=== PATIENT | male | born 1960 | race Caucasian/White ===

== ENCOUNTER → 2016-11-15 | Outpatient (CLI) | payer BC, OTHER ==
[2016-11-15 07:25] LABS: BASOPHILS # (AUTO) 0.08 10*3/UL; BASOPHILS % (AUTO) 1.4 % (0-1); EOSINOPHILS % (AUTO) 4.2 % (0-8); HEMATOCRIT 49.1 % (42.0-52.0); HEMOGLOBIN 17.3 g/dL (14.0-18.0); IMM GRAN % (AUTO) 0.2 % (0-5); IMM GRAN# (AUTO) 0.01 10*3/UL; LYMPHOCYTES # (AUTO) 1.55 10*3/uL; LYMPHOCYTES % (AUTO) 28.1 % (10-50); MEAN CORPUSCULAR HEMOGLOBIN 29.4 PG (27-31); MEAN CORPUSCULAR HGB CONC 35.2 g/dL (33-37); MEAN PLATELET VOLUME 9.3 FL (7.4-12.2); MONOCYTES # (AUTO) 0.46 10*3/UL (0.3-0.8); MONOCYTES % (AUTO) 8.3 % (5-15); NEUTROPHILS # (AUTO) 3.19 10*3/UL; NEUTROPHILS % (AUTO) 57.8 % (50-80); PLATELET MORPHOLOGY COMMENT NORMAL MORPHOLOGY (NORM); RDW COEFFICIENT OF VARIATION 12.9 % (11.5-14.5); RED BLOOD COUNT 5.88 10^6/uL (4.70-6.10); WHITE BLOOD COUNT 5.52 10^3/uL (4.8-10.8)
[2016-11-15 08:37] LABS: BILIRUBIN,TOTAL 0.9 mg/dL (0.3-1.2); BUN/CREATININE RATIO 17.14 (6-20); CALCIUM 9.7 mg/dL (8.7-10.7); CREATININE 0.7 mg/dL (0.70-1.50); EST GLOMERULAR FILTRATION > 60 (>60 ml/min/1.73m(2)); POTASSIUM 4.3 meq/L (3.8-5.2)
[2016-11-15 08:38] LABS: TOTAL PROTEIN 7.8 g/dL (6.1-8.0)
[2016-11-17 06:40] LABS: HEMOGLOBIN A1C 7.85 % (4.2-6.0); MEAN BLOOD GLUCOSE (CALC) 175.405 mg/dL
== END ==
LOC: LAB 07:09
DX: E83.119 Hemochromatosis, unspecified (principal); E11.9 Type 2 diabetes mellitus without complications; Z79.4 Long term (current) use of insulin; E55.9 Vitamin D deficiency, unspecified; E78.5 Hyperlipidemia, unspecified; I10 Essential (primary) hypertension; R97.20 Elevated prostate specific antigen [PSA]; Z12.5 Encounter for screening for malignant neoplasm of prostate; F17.220 Nicotine dependence, chewing tobacco, uncomplicated
CPT/HCPCS: 36415; 80053; 80061; 82306; 82728; 83036; 84443; 85025; G0103

== ENCOUNTER 2017-02-17 04:17 | Emergency (ER) | payer BC, OTHER ==
[2017-02-17] MEDS ORDERED: ONDANSETRON 4 MG/2 ML VIAL ONE (04:24)
[2017-02-17] MEDS ORDERED: Sodium Chloride 0.9% 1,000 ML ONE (04:26)
[2017-02-17] MEDS ORDERED: NORMAL SALINE 10 ML SYRINGE FLUSH IVP PRN (04:38)
[2017-02-17] MEDS ORDERED: KETOROLAC 15 MG/1 ML VIAL IVP ONE (04:40)
[2017-02-17] MEDS ORDERED: ONDANSETRON 4 MG/2 ML VIAL IVP ONE (04:40)
[2017-02-17] MEDS ORDERED: Sodium Chloride 0.9% 1,000 ML PRIMARY IV ONE (04:40)
[2017-02-17] MEDS ORDERED: MORPHINE SULFATE 4 MG/1 ML IVP ONE (04:40)
--- NOTE | 2017-02-17 04:42 | PDOC ---
Gen Adult / Medical Screen HPI - General Chief Complaint: General Medical Stated Complaint: Stomach Pain Date Seen by Provider: 02/17/17 Time Seen by Provider: 04:41 - History of Present Illness Initial Comments: Jermaine is a 57-year-old male who presents to the emergency department for right flank pain. Patient reports symptoms started 2 hours prior. Right side. Radiates tenderness in the abdomen. No exacerbating or relieving factors severe in nature sharp and stabbing. Patient indicates it feels similar to prior renal stones. Patient has mild urinary frequency. No dysuria urgency. Patient denies any fevers or chills. He has had nausea and vomiting. - Patient Home Medications Home Medications: Home Medications Lisinopril 0.5 tab PO BID #45 03/23/11 Lancets [Bd Ultra-Fine II] 1 each MC QID #120 each 06/11/14 Amlodipine Besylate 1 tab PO DAILY #30 tab 03/02/15 Insulin Glargine Inj [Lantus Inj] 45 unit SQ BID #2 vial 08/31/15 Atorvastatin Calcium [Lipitor] 1 tab PO QD #90 tab 11/25/15 Aspirin 1 tab PO QD #30 tab 12/13/15 Cetirizine HCl [Zyrtec] 1 cap PO QD #30 cap 12/13/15 Cholecalciferol (Vitamin D3) [Vitamin D3] 1 cap PO QD #30 cap 12/13/15 Multivit-Min/FA/Lycopene/Lut [Centrum Silver Tablet] 1 tab PO QD #30 tab Saccharomyces Boulardii [Probiotic] 1 tab PO QD #30 cap 12/13/15 Tamsulosin HCl [Flomax] 1 cap PO QD #30 cap 12/13/15 Fluticasone Propionate [Flonase Allergy Relief] 2 spr NS BID #16 spray 02/22/16 Naproxen [Naprosyn] 1 tab PO BID #60 tab 09/28/16 Sitagliptin Phosphate [Januvia] 1 tab PO QHS #90 tab 10/22/16 Blood Sugar Diagnostic [Onetouch Verio] 1 strip MC QID PRN #350 strip 01/24/17 HYDROcodone/APAP 5/325 Tab [Hope 5/325 Tab] 2 tab PO Q6H PRN #20 tab 02/17/17 Ondansetron Odt [Zofran ODT] 4 mg PO TID PRN #12 tab.rapdis 02/17/17 - Patient Allergies Allergies/Adverse Reactions: Allergies Allergy/AdvReac Type Severity Reaction Status Date / Time tetracycline Allergy Intermediate HIVES Verified 02/17/17 05:45 Past Medical History - heen HEENT History:  Additional HEENT History: GLASSES FOR READING Cardiovascular History: Hypertension, Hyperlipidemia Respiratory History: Pneumonia, Sleep Apnea Gastrointestinal History: Diverticulitis, Pancreatitis Additional Gastrointestinal History: PANCREATITIS DUE TO UNKNOWN CAUSE IN 2014 Genitourinary History: Kidney Stones Endocrine History: Type 2 Diabetes (oral), Type 2 Diabetes (insulin) Musculoskeletal History: Back Pain Prosthesis or Implant: Yes (L SHOULDER PINS/SCREWS) Additional Musculoskeletal History: NECK PAIN Neurological History: Denies History, Motion Sickness Blood Disorders: Other (please comment) Additional Blood Disorders History: HEMOCHROMATOSIS Psychiatric History: Denies History History of Sexually Transmitted Diseases: No Cancer History: Denies History History of MDRO: No History of Other Communicable Diseases: No Alcohol Use: None Substance Use Type: None Previous Surgical History: Yes Type / Date of Surgery: NECK FUSION,L WRIST, L KNEE SCOPE, R ANKLE, L ELBOW, L SHOULDER, B EYES ( GROWTHS REMOVED)/ BILATERAL INGUINAL HERNIA REPAIR/PILONIDAL CYST EXCISED/RIGHT FOOT/ Anesthesia Reactions: No Malignant Hyperthermia: No Significant Family History: No pertinent family hx Past Medical History Reviewed: Reviewed - No Changes ROS - Limitations ROS Limitations: No Limitations Constitution: DENIES: Chills, Fever Cardiovascular: REPORTS: Denies Cardiac Symptoms Respiratory: REPORTS: Denies Resp Symptoms Neurological: REPORTS: Denies Neuro Symptoms Gastrointestinal: REPORTS: Nausea, Vomitting Endocrine: REPORTS: Denies Symptoms Musculoskeletal: REPORTS: Other (Right flank pain) Genitourinary: REPORTS: Other (Frequency) Eyes: REPORTS: Denies Symptoms ENT: REPORTS: Denies Symptoms Skin: REPORTS: Denies Skin Symptoms Lympathic: REPORTS: Denies Lympathic Symptoms Gen Adult/Medical Screen Exam - General Appearance General Appearance: POSITIVE: Mild Distress - HEENT HEENT: POSITIVE: Head Inspection Nml - Pupils Pupil Size: 4 mm: Bilateral - Neck Neck: POSITIVE: Normal Inspection - Respiratory Respiratory: POSITIVE: No Respiratory Distress, Breath Sounds Normal - Cardiovascular Cardiovascular: POSITIVE: Regular Rate & Rhythm, No Murmur, No Gallop - Abdomen Abdomen: Soft: (All Quadrants), Normal Bowel Sounds: (All Quadrants), No Splenomegaly: (All Quadrants), No Hepatomegaly: (All Quadrants) - Back Back: NEGATIVE: CVA Tenderness - Neurological / Psychological Mental Status: POSITIVE: Mood Normal Orientation: POSITIVE: Oriented x 3 - Skin Skin: POSITIVE: Warm, Dry - Extremities Extremity: Non-Tender: (All Extremities), Normal ROM: (All Extremities), Normal Inspection: (All Extremities) Gen Adlt/Medical Scrn Progress - Results Reviewed by me Xrays/CTs/US Reviewed by me: Yes Radiology Findings: CT scan shows a right-sided stone at the UVJ. Lab Results Reviewed: Yes Lab Results:: Laboratory Results 02/17/17 Range/Units 04:38 WBC 6.88 (4.8-10.8) 10^3/uL RBC 5.94 (4.70-6.10) 10^6/uL Hgb 17.8 (14.0-18.0) g/dL Hct 49.4 (42.0-52.0) % MCV 83.2 (80-90) FL MCH 30.0 (27-31) PG MCHC 36.0 (33-37) g/dL RDW Std Deviation 41.0 (39-50) fL RDW Coeff of Aaron 13.5 (11.5-14.5) % Plt Count 206 (140-350) 10*3/uL MPV 10.1 (7.4-12.2) FL Immature Gran % (Auto) 0.6 (0-5) % Neut % (Auto) 53.6 (50-80) % Lymph % (Auto) 33.7 (10-50) % [place] % (Auto) 7.0 (5-15) % Eos % (Auto) 4.4 (0-8) % Baso % (Auto) 0.7 (0-1) % Immature Gran # (Auto) 0.04 10*3/UL Neut # (Auto) 3.69 10*3/UL Lymph # (Auto) 2.32 10*3/uL [place] # (Auto) 0.48 (0.3-0.8) 10*3/UL Eos # (Auto) 0.30 10*3/UL Baso # (Auto) 0.05 10*3/UL WBC Morphology Comment Normal morphology (NORM) Plt Morphology Comment Normal morphology (NORM) RBC Morph Comment Normal morphology (NORM) Sodium 144 (135-145) meq/L Potassium 3.9 (3.8-5.2) meq/L Chloride 107 (98-112) meq/L Carbon Dioxide 22 L (23-33) meq/L Anion Gap 15 (5-20) BUN 13 (7-22) mg/dL Creatinine 0.8 (0.70-1.50) mg/dL Estimated GFR > 60 (>60 ml/min/1.73m(2)) BUN/Creatinine Ratio 16.25 (6-20) Glucose 165 H (78-110) mg/dL Calculated Osmolality 301.0 H (267-292) mOsm/kg Calcium 9.5 (8.7-10.7) mg/dL Total Bilirubin 0.8 (0.3-1.2) mg/dL AST 28 (21-57) IU/L ALT 48 (21-72) IU/L Alkaline Phosphatase 92 (38-126) IU/L Total Protein 7.6 (6.1-8.0) g/dL Albumin 4.6 (3.5-4.8) g/dL Globulin 3.0 (2.50-4.10) g/dL Albumin/Globulin Ratio 1.50 (1.3-2.0) mg/g Lipase 202 (23-300) IU/L Ur Collection Type Clean catch urine Urine Color Yellow Urine Clarity Slightly cloudy (CLEAR) Urine pH 5.0 (5.0-8.5) Ur Specific [place] 1.025 (1.005-1.030) Urine Protein 30 (NEG) mg/dl Urine Glucose (UA) 100 (NEG) mg/dL Urine Ketones Trace (NEG) Urine Occult Blood Large H (NEG) Urine Nitrate Negative (NEG) Urine Bilirubin Negative (NEG) Urine Urobilinogen 0.2 (0.2) EU/dL Ur Leukocyte Esterase Negative (NEG) Urine RBC 6-8 (NONE) /hpf Urine WBC 1-3 (NONE) Ur Squamous Epith Cells Rare (NONE) Ur Renal Epithelial Cell None (NONE) Urine Crystals None Urine Bacteria Rare (NONE) Urine Casts None (NONE) Urine Mucus None (NONE) Urine Trichomonas None (NONE) Urine Yeast None (NONE) Ur Culture Indicated? Culture not set - Patient's Progress Pain Medication Addressed: POSITIVE: Yes MDM / ED Course: Jermaine is a 57-year-old male who presents to the emergency department with right flank pain. Vital signs are unremarkable and examination demonstrates male in mild distress. Differential diagnosis includes but is not limited to pyelonephritis, UTI, back pain, renal colic. Patient CT scan does demonstrate a right-sided renal stone that is visualized on my repeat though not interpreted as such by overnight radiology. Laboratory studies demonstrate hematuria. There is no evidence of urinary infection. Patient's CBC and chemistries unremarkable. Patient was treated here with morphine and Zofran and Reglan and Toradol. On reevaluation he was feeling much better. He does have a urologist that he may follow up with. He is 29 taking Flomax. Instructed him to use medication and follow-up with his urologist. Patient instructed to return to the emergency department for any uncontrolled pain. Patient Care Time - Estimated PCT Patient Care Time (In Minutes): 35 Vital Signs - Recent Vital Signs Vital Signs: Vital Signs (Last 8 hours) Temp Pulse Resp BP Pulse Ox 02/17/17 06:38 77 14 143/78 90 02/17/17 04:17 96.8 F 94 22 167/114 96 - VS Reviewed Vital Signs Reviewed: Yes Discharge Clinical Impression: Ureteric colic Discharge Disposition: Discharged to Home Condition: Good Prescriptions / Orders: HYDROcodone/APAP 5/325 Tab [Hope 5/325 Tab] 2 tab PO Q6H PRN #20 tab PRN Reason: Pain Ondansetron Odt [Zofran ODT] 4 mg PO TID PRN #12 tab.rapdis PRN Reason: Nausea Patient Instructions Given at Discharge: Renal Colic (ED) Additional Instructions: Thank you for coming to the emergency department. Your CT scan does show the you have a kidney stone. Please use medication for pain and nausea as prescribed. Please use ibuprofen as this often works well for kidney stone pain. Please follow-up with your urologist. Return to the emergency department for any worsening or uncontrolled pain.
[2017-02-17] MEDS ORDERED: TAMSULOSIN 0.4 MG CAPSULE PO ONE (04:43)
[2017-02-17] MEDS ORDERED: KETOROLAC 30 MG/1 ML VIAL ONE (04:43)
[2017-02-17] MEDS ORDERED: MORPHINE SULFATE 4 MG/1 ML ONE (04:43)
[2017-02-17 04:49] LABS: BLOOD UREA NITROGEN 13 mg/dL (7-22); BUN/CREATININE RATIO 16.25 (6-20); CALCIUM 9.5 mg/dL (8.7-10.7); EST GLOMERULAR FILTRATION > 60 (>60 ml/min/1.73m(2)); LIPASE 202 IU/L (23-300); SERUM ALBUMIN 4.6 g/dL (3.5-4.8)
[2017-02-17 04:53] LABS: BASOPHILS # (AUTO) 0.05 10*3/UL; BASOPHILS % (AUTO) 0.7 % (0-1); EOSINOPHILS % (AUTO) 4.4 % (0-8); HEMATOCRIT 49.4 % (42.0-52.0); HEMOGLOBIN 17.8 g/dL (14.0-18.0); LYMPHOCYTES # (AUTO) 2.32 10*3/uL; MEAN CORPUSCULAR VOLUME 83.2 FL (80-90); MEAN PLATELET VOLUME 10.1 FL (7.4-12.2); MONOCYTES # (AUTO) 0.48 10*3/UL (0.3-0.8); NEUTROPHILS # (AUTO) 3.69 10*3/UL; NEUTROPHILS % (AUTO) 53.6 % (50-80); RED BLOOD COUNT 5.94 10^6/uL (4.70-6.10)
[2017-02-17 04:57] LABS: PLATELET MORPHOLOGY COMMENT NORMAL MORPHOLOGY (NORM); RBC MORPHOLOGY COMMENT NORMAL MORPHOLOGY (NORM); WBC MORPHOLOGY COMMENT NORMAL MORPHOLOGY (NORM)
[2017-02-17 05:05] LABS: BILIRUBIN,URINE NEGATIVE (NEG); COLOR,URINE YELLOW; GLUCOSE, URINE (UA) 100 mg/dL (NEG); NITRATE,URINE NEGATIVE (NEG); OCCULT BLOOD,URINE LARGE (NEG); PROTEIN,URINE 30 mg/dl (NEG); UROBILINOGEN,URINE 0.2 EU/dL (0.2)
[2017-02-17 05:13] LABS: BACTERIA,URINE RARE; CLARITY,URINE SLIGHTLY CLOUDY (CLEAR); SQUAMOUS EPITHELIAL CELL,UR RARE; URINE SAMPLE TYPE CLEAN CATCH URINE
[2017-02-17 05:45] VITALS: TEMP 96.8
[2017-02-17] MEDS ORDERED: Metoclopramide Inj 10 MG/2 ML VIAL IVP ONE (06:06)
--- NOTE | 2017-02-17 06:28 | DI ---
HISTORY: Right flank pain. History of renal stone. TECHNIQUE: Contiguous axial images of the abdomen and pelvis were obtained and submitted for interpr etation. FINDINGS: Ureters and bladder are unremarkable. No radiopaque collecting system calculi. No evidenc e of obstructive uropathy. There are multiple bilateral non-obstructive nephroliths. There is colonic diverticulosis without CT evidence of acute diverticulitis. Hollow viscus organs dem onstrate normal course and caliber. The appendix is within normal limits. There is no intraperitonea l free air or fluid. Normal CT appearance of the liver, gallbladder, pancreas, spleen, and adrenal glands. There is mild bilateral perinephric stranding which may represent renal sweat, a finding that can be seen in the setting of chronic renal disease. Vascular structures are intact with atheromatous aortoiliac and co ronary artery calcifications. No abdominopelvic lymphadenopathy is present. The prostate is enlarge d. There is no inguinal or umbilical hernia. There is bibasilar atelectasis versus scar. The lung bases are otherwise clear. The wall of the distal esophagus is thickened, though incompletely distended. There is multilevel degenerative disc disease. IMPRESSION: 1. Multiple non-obstructive nephroliths bilaterally. 2. Colonic diverticulosis without CT evidence of acute diverticulitis. 3. Mild bilateral perinephric stranding may represent renal sweat, a finding that can be seen in th e setting of chronic renal disease. 4. Thickened distal esophageal wall. Although this could represent pseudothickening or a hiatal fam ia, an inflammatory or neoplastic process could cause a similar appearance. Correlation with upper GI or endoscopic findings is recommended.
[2017-02-17 06:41] VITALS: RESP 14
[2017-02-17] MEDS ORDERED: HYDROcodone-APAP 5 MG -325 MG TABLET PO SCH (07:00)
== END 2017-02-17 07:06 | disposition home or self-care (01) ==
LOC: ER 04:17
DX: N23 Unspecified renal colic (principal); R11.2 Nausea with vomiting, unspecified; E11.9 Type 2 diabetes mellitus without complications; Z79.4 Long term (current) use of insulin
CPT/HCPCS: 74176; 80053; 81001; 81003; 83690; 85025; 96361; 96374; 96375; 99283 ×2; J1885; J2765; J2270; J2405; J7030

== ENCOUNTER → 2017-03-14 | Outpatient (CLI) | payer BC, OTHER ==
[2017-03-14 15:38] LABS: HEMOGLOBIN A1C 7.03 % (4.2-6.0)
[2017-03-14 16:02] LABS: CHOL/HDL RATIO 5.2 RATIO (0-4.0); LDL CHOLESTEROL,CALCULATED 64.6 mg/dL
== END ==
LOC: MOB LAB 14:04
DX: E11.9 Type 2 diabetes mellitus without complications (principal); Z79.4 Long term (current) use of insulin; E83.119 Hemochromatosis, unspecified; E78.5 Hyperlipidemia, unspecified; F17.200 Nicotine dependence, unspecified, uncomplicated
CPT/HCPCS: 36415; 80061; 81256; 83036

== ENCOUNTER → 2017-04-17 | Outpatient (CLI) | payer BC, OTHER | LOC: MOB LAB 16:19 | DX: R10.84 Generalized abdominal pain (principal); R35.0 Frequency of micturition | CPT/HCPCS: 87088 ==

== ENCOUNTER → 2017-04-23 | Outpatient (CLI) | payer BC, OTHER ==
[2017-04-23 11:58] LABS: BILIRUBIN,URINE NEGATIVE (NEG); CLARITY,URINE CLEAR (CLEAR); COLOR,URINE YELLOW; GLUCOSE, URINE (UA) NEGATIVE (NEG); NITRATE,URINE NEGATIVE (NEG); OCCULT BLOOD,URINE NEGATIVE (NEG); PROTEIN,URINE NEGATIVE (NEG); UROBILINOGEN,URINE 0.2 mg/dL (0.2)
[2017-04-23 12:00] LABS: URINE SAMPLE TYPE VOIDED SPECIMEN
[2017-04-23 12:01] LABS: WBC,URINE 0-1
== END ==
LOC: MOB LAB 10:48
DX: N30.00 Acute cystitis without hematuria (principal)
CPT/HCPCS: 81001; 87088

== ENCOUNTER 2019-04-21 09:46 | Inpatient (IN) ==
[~2019-04-21 09:46] MED LIST: ACETAMINOPHEN 500 MG TABLET PO ONE; CELECOXIB 200 MG CAPSULE PO ONE; GABAPENTIN 300 MG CAPSULE PO ONE; LIDOCAINE W/ SODIUM BICARB 0.5 ML SYR ONE; LIDOCAINE W/ SODIUM BICARB 0.5 ML SYR SUBD ONE; Lactated Ringers 1,000 ML PRIMARY IV ONE; Nasal Sanitizer POPSWAB ampule 3 AMP (Nozin) PREOP DOSE ENOS SCH; PANTOPRAZOLE 20 MG TABLET.DR PO ONE; ceFAZolin Inj 2gm (Premix) 2 GM/50 ML BAG IV ONE
[2019-04-21] MEDS ORDERED: GABAPENTIN 300 MG CAPSULE PO ONE (09:49)
[2019-04-21] MEDS ORDERED: CELECOXIB 200 MG CAPSULE PO ONE (09:49)
[2019-04-21] MEDS ORDERED: ACETAMINOPHEN 500 MG TABLET PO ONE (09:49)
[2019-04-21] MEDS ORDERED: PANTOPRAZOLE 20 MG TABLET.DR PO ONE (09:49)
[2019-04-21] MEDS ORDERED: Ketorolac Inj 30 MG, Morphine Inj (Ortho Cocktail) 4 MG, BUPivacaine Inj 0.25% PF 150 MG SPLASH ONE ×6 (09:51→12:15)
[2019-04-21] MEDS: Lactated Ringers 1,000 ML PRIMARY IV SCH ×3 (10:02→16:30)
[2019-04-21] MEDS ORDERED: CITRIC ACID/SODIUM CITRATE 30 ML CUP PO ONE ×2 (10:29→10:30)
[2019-04-21 10:56] LABS: BILIRUBIN,URINE NEGATIVE (NEG); CLARITY,URINE CLEAR (CLEAR); COLOR,URINE YELLOW (Y); GLUCOSE, URINE (UA) >=1000 mg/dL (NEG); OCCULT BLOOD,URINE NEGATIVE (NEG); PROTEIN,URINE NEGATIVE (NEG); UROBILINOGEN,URINE 0.2 EU/dL (0.2)
[2019-04-21 10:57] LABS: URINE SAMPLE TYPE CLEAN CATCH URINE
[2019-04-21] MEDS ORDERED: EPINEPHrine Inj (1:1,000) 1 mg/ml amp ONE (11:21)
[2019-04-21] MEDS ORDERED: MIDAZOLAM HCL 2 MG/2 ML VIAL ONE (11:22)
[2019-04-21] MEDS ORDERED: fentaNYL Inj 100 MCG/2 ML VIAL ONE (11:22)
[2019-04-21] MEDS ORDERED: MORPHINE SULFATE/PF 10 MG/10 ML AMPULE ONE (11:22)
[2019-04-21] MEDS ORDERED: Propofol 1,000 MG/100 ML VIAL IV ONE (12:30)
[2019-04-21] MEDS ORDERED: TRANEXAMIC ACID 1,000 MG / 10 ML VIAL ONE (12:54)
[2019-04-21] MEDS ORDERED: ePHEDrine Inj 50 MG/ML AMP ONE (12:57)
[2019-04-21] MEDS ORDERED: Sodium Chloride 0.9% vial 20 ML ONE (13:14)
[2019-04-21] MEDS ORDERED: BUPivacaine Liposome/PF (Exparel) Inj 20ml vial INFIL ONE (13:14)
[2019-04-21] MEDS ORDERED: PROPOFOL 10 MG/1 ML (200 MG/20 ML) VIAL IV ONE (14:01)
[2019-04-21] MEDS ORDERED: Lactated Ringers 1,000 ML PRIMARY IV ONE (14:04)
[2019-04-21] MEDS ORDERED: NEOMYCIN/BACITRACIN/POLYMYXIN 0.9 GM OINT PACKET TOPICAL ONE (14:52)
[2019-04-21 15:33] LABS: Hematocrit [HCT] 48.7 % (42.0-52.0); Hemoglobin [HGB] 16.5 g/dL (14.0-18.0)
--- NOTE | 2019-04-21 15:43 | DI ---
XR HIP COMPLETE MIN 2VW U/L,04/21/2019 3:08 PM: Clinical History: Status post right total hip arthroplasty. Previous Exam: None at this facility. Findings: 3 views of the right hip are obtained, and demonstrate postsurgical changes consistent with right tot al hip arthroplasty. There is no fracture no hardware loosening. A nonobstructive bowel gas pattern is seen. Impression: Status post right total hip arthroplasty.
[2019-04-21] MEDS ORDERED: CALCIUM CARBONATE 500 MG (TUMS) CHEWABLE TABLET PO PRN (15:44)
[2019-04-21] MEDS ORDERED: MAG HYDROX/AL HYDROX/SIMETH 30 ML SUSP PO PRN (15:44)
[2019-04-21] MEDS ORDERED: diphenhydrAMINE 25 MG CAPSULE PO PRN (15:44)
[2019-04-21] MEDS ORDERED: ONDANSETRON 4 MG/2 ML VIAL IVP PRN (15:44)
[2019-04-21] MEDS ORDERED: LIDOCAINE HCL 2 % 10 ML JELLY URO-JECT TOPICAL PRN (15:44)
[2019-04-21] MEDS ORDERED: BISACODYL 5 MG TABLET PO PRN (15:44)
--- NOTE | 2019-04-21 17:30 | PDOC ---
HPI - History of Present Illness Date of Service: 04/21/19 Time of Service: 17:25 Chief Complaint: Right hip pain History of Present Illness: This very pleasant 59-year-old male with diabetes mellitus type II, hypertension, and hypercholesterolemia, who developed right hip pain over the last few months that was quite debilitating and was limiting his activity significantly. The patient states that he had reached his limit, and opted to have a right hip replacement with Dr. Wu. That surgery was done today. Please see the surgical notes regarding the procedure as dictated by Dr. Wu. The hospitalist service is asked to consult to help address issues and advise on issues regarding diabetes mellitus management, hypertension and hypercholesterolemia. Postoperatively, the patient denies any chest pain, shortness breath, nausea or vomiting. His temperature was called and he said that Bear hugger on to warm him up. Past Medical History Medical History: 1. Hypertension. 2. Diabetes mellitus type II. 3. Hypercholesterolemia. 4. Obstructive sleep apnea. 5. Hx of nephrolithiasis. 6. vitamin D deficiency. 7. Hemachromatosis, with phlebotomy periodically. Surgical History: Status post peroneal tendon repair (Acute 06/18/97). Pilonidal abscess (Acute ~06/18/06). History of decompression of ulnar nerve (Chronic ~2011). Bilateral pterygium resection (Acute). 1. Bone Graft L Navicular. 2. Status post colonoscopy. 3. Fusion PIP R Hallux. 4. Bilateral inguinal hernia. 5. Cervical vertebral fusion Pertinent Family History: significant for diabetes on mother's side of familly Past Social History: does not smoke or drink alcohol. Lives in [place], [place]. Tobacco Use: Never Smoker Do you dip or chew tobacco: Yes In the Past 12 Months, Have Used or Abuse Any of the Following Substance: None Alcohol Use: None Medication / Allergies Home Medications: Home Medications Medication Instructions Recorded Confirmed Lancets [Bd Ultra-Fine II] 1 ea MC QID #120 ea 06/11/14 04/21/19 Insulin Glargine Inj [Lantus Inj] 45 unit SQ BID #2 vial 08/31/15 04/21/19 Multivit-Min/FA/Lycopen/Lutein 1 tab PO QD #30 tab 12/13/15 04/21/19 [Centrum Silver Tablet] amlodipine 5 mg tablet 5 mg PO QDAY #30 tab 12/17/17 04/21/19 aspirin 81 mg chewable tablet 81 mg PO QDAY #30 tab 12/17/17 04/21/19 blood sugar diagnostic strips 1 strip MISCELLANEOUS QID #350 12/17/17 04/21/19 strip cetirizine 10 mg capsule 10 mg PO QDAY #30 cap 12/17/17 04/21/19 cholecalciferol (vitamin D3) 400 400 unit PO QD #30 cap 12/26/17 04/21/19 unit capsule fluticasone propionate 50 2 spray INASL BID #16 spray 12/26/17 04/21/19 mcg/actuation nasal spray,suspension tamsulosin 0.4 mg capsule 0.4 mg PO QD #30 cap 12/26/17 04/21/19 dapagliflozin 5 mg tablet 5 mg PO QAM #90 tab 11/25/18 04/21/19 empagliflozin 25 mg tablet 25 mg PO QAM #90 tab 12/19/18 04/21/19 lisinopril 40 mg tablet 20 mg PO QDAY #90 tab 12/19/18 04/21/19 rosuvastatin 40 mg tablet 40 mg PO QPM #90 tab 02/12/19 04/21/19 sitagliptin 100 mg tablet 100 mg PO QHS #90 tab 02/12/19 04/21/19 Hydrocodone/Acetaminophen 1 - 2 ea PO Q4-6H PRN #70 tab 04/21/19 [Hydrocodon-Acetaminoph 7.5-325] Allergies/Adverse Reactions: Allergies Allergy/AdvReac Type Severity Reaction Status Date / Time tetracycline Allergy Intermediate HIVES Verified 04/21/19 15:47 Review of Systems - Respiratory Respiratory: REPORTS: Negative System Review - Cardiovascular Cardiovascular: REPORTS: Negative System Review - Gastrointestinal Gastrointestinal / Abdominal: REPORTS: Negative System Review - Genitourinary Genitourinary: REPORTS: Other (Hx of nephrolithiasis) Exam - Vitals Vital Signs: Vital Signs Temperature 97.5 F Temperature Source Temporal Artery Scan Pulse Rate [Pulse Oximeter] 68 Pulse Rate 75 Respiratory Rate 12 Blood Pressure [Right Arm] 117/72 Blood Pressure 103/72 Pulse Ox 96 Oxygen Flow Rate 2 Oxygen Delivery Method Nasal Cannula Height 6 ft Weight 207 lb - General General Appearance: No Acute Distress, Cooperative - Head Head Exam: Normal Inspection, Normocephalic, Atraumatic - Eye Eye Exam: POSITIVE: No Scleral Icterus - ENT ENT Exam: POSITIVE: Mucous Membranes Moist - Neck Neck Exam: JVP is not Raised - Respiratory Respiratory Exam: POSITIVE: Clear to Auscultation - Bilaterally, Breathing Non Labored - Cardiovascular Cardiovascular Exam: POSITIVE: RRR, No Murmur, No Clicks, No Gallops, No Rubs, No JVD - GI/Abdominal GI/Abdominal Exam: POSITIVE: Normal Bowel Sounds, Non Tender, Non Distended, Soft - Rectal Rectal Exam: POSITIVE: Deferred - External Exam: POSITIVE: Deferred Exam: POSITIVE: Deferred - Extremities Extremities Exam: POSITIVE: No Clubbing Present, No Edema Present, No Cyanosis Present Additional Extremities Exam Details: right hip is dressed and has ice in place. - Neurological Neurological Exam: POSITIVE: Alert, Oriented x 3, No Facial Droop, Speech Intact / Clear - Psychiatric Psychiatric Exam: POSITIVE: Normal Affect, Normal Mood Results - Labs CBC and BMP: 04/21/19 15:30 Additional Lab Results: 04/13/19 04/13/19 04/13/19 07:39 07:39 07:39 WBC 6.24 Hgb Hct Plt Count 182 PT 11.1 INR 0.97 Sodium 142 Potassium 4.2 Chloride 107 Carbon Dioxide 20 L Anion Gap 15 BUN 14 Creatinine 0.8 Estimated GFR > 60 Hemoglobin A1c Calculated Osmolality 294.0 H Calcium 9.8 Ferritin Total Bilirubin 0.7 AST 27 ALT 38 Alkaline Phosphatase 74 Total Protein 7.1 Albumin 4.6 Globulin 2.5 Albumin/Globulin Ratio 1.80 Triglycerides 166 Cholesterol 145 LDL Cholesterol, Calc 80.800 VLDL Cholesterol 33 HDL Cholesterol 31 L Cholesterol/HDL Ratio 4.67 H PSA Screen TSH 04/13/19 04/13/19 04/21/19 07:39 07:39 15:30 WBC Hgb 16.5 Hct 48.7 Plt Count PT INR Sodium Potassium Chloride Carbon Dioxide Anion Gap BUN Creatinine Estimated GFR Hemoglobin A1c 7.24 H Calculated Osmolality Calcium Ferritin 175.00 Total Bilirubin AST ALT Alkaline Phosphatase Total Protein Albumin Globulin Albumin/Globulin Ratio Triglycerides Cholesterol LDL Cholesterol, Calc VLDL Cholesterol HDL Cholesterol Cholesterol/HDL Ratio PSA Screen 4.88 H TSH 1.08 - EKG Data -: EKG Interpreted by Me (from 04/13/2019) Rate: Normal EKG Shows Normal: Sinus Rhythm - EKG Data EKG Interpretation: Normal EKG - Imaging Status: Image Reviewed by Me (I looked on chest X-ray from 04/13/2019, and it appears negative on my view. report reviewed, negative.) Assessment and Plan - Patient Problems (1) Diabetes mellitus type 2, controlled Current Visit: Yes Status: Acute Code(s): E11.9 - Type 2 diabetes mellitus without complications Qualifiers: Diabetes mellitus [place] foreman insulin use: with senior care use Diabetes mellitus complication status: without complication Qualified Code(s): E11.9 - Type 2 diabetes mellitus without complications; Z79.4 - long-term (current) use of insulin (2) Vitamin D deficiency Current Visit: Yes Status: Chronic Onset Date: 11/14/15 Code(s): E55.9 - Vitamin D deficiency, unspecified (3) Obstructive sleep apnea syndrome Current Visit: Yes Status: Chronic Onset Date: 08/24/15 Code(s): G47.33 - Obstructive sleep apnea (adult) (pediatric) (4) Hemochromatosis Current Visit: Yes Status: Chronic Onset Date: 03/14/12 Code(s): E83.119 - Hemochromatosis, unspecified Qualifiers: Hemochromatosis type: hereditary Qualified Code(s): E83.110 - Hereditary hemochromatosis (5) Essential hypertension Current Visit: Yes Status: Chronic Onset Date: 03/27/12 Code(s): I10 - Essential (primary) hypertension (6) Status post right hip replacement Current Visit: Yes Status: Acute Code(s): Z96.641 - Presence of right artificial hip joint - Assessment / Plan Additional Assessment/Plan Details: Hold lisinopril for now. I like to make sure that the patient's euvolemic prior to resuming this medication because of its perioperative associations with hypotension and kidney failure. Hold by mouth medications for diabetes and use sliding scale insulin or corrective dose insulin but I will continue Lantus. He can resume by mouth medications for diabetes post hospital stay. Patient is on Lovenox for DVT prophylaxis as per orthopedics. PT and OT. Labs in a.m. Thank you for this consult, I'll be our pleasure to continue to advise and assist in the management of this patient's medical issues during his hospital stay.
[2019-04-21] MEDS ORDERED: DEXTROSE 50%-WATER SYRINGE 50 ML SYRINGE IVP PRN (17:43)
[2019-04-21] MEDS ORDERED: DEXTROSE 31 GM GEL PO PRN (17:43)
[2019-04-21] MEDS ORDERED: Insulin Sliding Scale Protocol SUBCUT PRN (17:43)
[2019-04-21] MEDS ORDERED: Glucagon Inj Vial 1 MG/ML VIAL IM PRN (17:43)
--- NOTE | 2019-04-21 18:42 | ORTHO.OP ---
Surgery Date: 04/21/19 Preoperative Diagnosis: right hip OA Postoperative Diagnosis: same Procedure: right RAJI Surgeon: Power Wu MD Supervisor Refining: Mel Carter PA-C Anesthesia Provider: Richy Silva CRNA Anesthesia Type: Regional (spinal) Estimated Blood Loss (mL): 250 Fluids: 1500 mL LR Pathology: none Findings: See Operative Note Indications: See Operative Note Complications: None
--- NOTE | 2019-04-21 18:47 | CRNA.PROCE ---
Central Neuraxis Block Placemt - - Safety Measures: Time Out Taken, Site Verified - - Type of Block: Subarachnoid Reason for Block: Surgical Moniters Used During Block: EKG, SPO2, NIBP Sedation Used - Enter Amount Used in Comment Field: Midazolam (mg): Yes (2), Fentanyl (mcg): Yes (50) Positioning: Sitting Skin Prep Used: ChloroPrep Draped: Yes Skin Infiltration - Enter Amount Used in Comment Field: 1% Xylocaine (mL): Yes (wheal) Introducer User: 23 Gauge Spinal Needle Used: 25 Hugo 80 mm Local Anesthetic - Enter Amount Used in Comment Field: 0.75 % Bupivacaine with Dextrose (ml): Yes (2) Additive Used - Enter Amount Used in Comment Field: Preservative Free Morphine (mg): Yes (0.15), Epinephrine 1:1000 Needle Rinse (mL): Yes Anesthesia Time - Other Weight: 93.894 kg Height: 6 ft Body Mass Index (BMI): 28.0
--- NOTE | 2019-04-21 18:48 | CRNA.PROGR ---
Anesthesia Time - Procedure/Recovery Time Start Date: 04/21/19 End Date: 04/21/19 Anesthesia : Time In: 12:23 Anesthesia : Time Out: 12:00 Anesthesia : Total Time: -23 - Total Anesthesia Time Total Anesthesia Time (minutes): -23 - Other Weight: 93.894 kg Height: 6 ft Body Mass Index (BMI): 28.0 Physical Status: P2 Anesthesia Type: Spinal Block
--- NOTE | 2019-04-21 18:48 | CRNA.PROGR ---
Anesthesia Recovery Phase I - Post Anesthesia Evaluation Patient's Condition on Arrival in Phase I: Stable Pain Level: 0
[2019-04-21] MEDS: Insulin Glargine SoloStar Inj 100 UNIT/ML INSULN.PEN SUBCUT SCH (20:43)
[2019-04-21] MEDS: ASPIRIN 81 MG (BABY) CHEWABLE TABLET PO SCH (20:44)
[2019-04-21] MEDS: DOCUSATE 100 MG CAPSULE PO SCH (20:44)
[2019-04-21] MEDS: AmLODIPine Tab 5 MG TABLET PO SCH ×2 (20:45→21:01)
[2019-04-21] MEDS: ceFAZolin Inj 2gm (Premix) 2 GM/50 ML BAG IV SCH (20:45)
[2019-04-21] MEDS ORDERED: TAMSULOSIN 0.4 MG CAPSULE PO SCH (21:00)
[2019-04-21] MEDS ORDERED: Rosuvastatin Tab 20 MG TAB PO SCH (21:00)
[2019-04-21] MEDS: Insulin Lispro Flexpen 300 UNIT/3 ML INSULN.PEN SUBCUT SCH (21:04)
[2019-04-22] MEDS: Lactated Ringers 1,000 ML PRIMARY IV SCH (03:13)
[2019-04-22 04:38] LABS: Hematocrit [HCT] 43.9 % (42.0-52.0); Hemoglobin [HGB] 14.9 g/dL (14.0-18.0); MEAN CORPUSCULAR HEMOGLOBIN 29.9 PG (27-31); MEAN CORPUSCULAR HGB CONC 33.9 g/dL (33-37); MEAN PLATELET VOLUME 9.8 FL (7.4-12.2); RED BLOOD COUNT 4.99 10^6/uL (4.70-6.10)
[2019-04-22] MEDS: ceFAZolin Inj 2gm (Premix) 2 GM/50 ML BAG IV SCH (04:53)
[2019-04-22 04:54] LABS: BLOOD UREA NITROGEN 18 mg/dL (7-22); BUN/CREATININE RATIO 25.71 (6-20)
[2019-04-22] MEDS: Insulin Lispro Flexpen 300 UNIT/3 ML INSULN.PEN SUBCUT SCH ×2 (06:57→11:30)
[2019-04-22] MEDS: HYDROcodone-APAP 7.5 MG-325 MG TABLET PO PRN ×2 (08:00→14:25)
[2019-04-22] MEDS: ASPIRIN 81 MG (BABY) CHEWABLE TABLET PO SCH (08:00)
[2019-04-22] MEDS: AmLODIPine Tab 5 MG TABLET PO SCH (08:00)
[2019-04-22] MEDS: DOCUSATE 100 MG CAPSULE PO SCH (08:01)
[2019-04-22] MEDS: Insulin Glargine SoloStar Inj 100 UNIT/ML INSULN.PEN SUBCUT SCH (08:05)
[2019-04-22] MEDS ORDERED: ENOXAPARIN SODIUM 30 MG/0.3 ML SYRINGE SUBCUT SCH (09:00)
[2019-04-22] MEDS ORDERED: Bacteriostatic NaCl Inj 30ml Vial ONE (10:14)
[2019-04-22] MEDS ORDERED: BUPIVACAINE 0.25% W/ EPI - 10 ML VIAL ONE (10:14)
[2019-04-22] MEDS ORDERED: Iothalamate Meglumine 30 ML VIAL IV ONE (10:14)
--- NOTE | 2019-04-22 11:17 | DCSUMMARY ---
Hospitalization Summary Admit Date: 04/21/2019 Discharge Date: 04/22/19 Primary Diagnosis:: status post right hip replacement Hospital Course: The very pleasant 5-year-old male who presented for right hip replacement done by Dr. Wu on 04/21/2019. See his notes regarding the procedure performed. Postoperatively, the patient is done well. He is complying with physical therapy and has been compliant with his DVT prophylaxis. Orthopedics will manage pain, DVT prophylaxis, and postsurgical wound care. Hospital service was asked to advise on medical issues. During the hospital stay the patient was maintained on insulin therapy for his diabetes, and as he was euvolemic his lisinopril was resumed. He did have a low blood sugar of 60 over night, but orange juice brought that back up and he has was not symptomatically from the relative hypoglycemia. He has not had any symptoms of chest pain, shortness breath, nausea or vomiting and he would really like to go home today if he is cleared by physical therapy to do so and I see no reason from his medical problems, chronic medical issues, why he should remain here if he is cleared by orthopedics to discharge home. No chest pain, no shortness breath, no nausea or vomiting. States his hip pain is achy but controlled with pain medicines. Assessment and Plan: 1. As per discharge assessments noted 2. Disposition: Patient discharged home if cleared by therapy and okay with orthopedics 3. Condition on discharge, stable and improved. 4. Diet: regular diet/diabetic diet 5. Activities: Activities as per Dr. Wu's instructions and per physical therapy 6. Follow-Up: 1. Dr. Wu on 04/27/[address] Blum for recheck of medical issues in 10-14 days 7. Medications at the Time of Discharge: Home Medications Medication Instructions Recorded Confirmed Lancets [Bd Ultra-Fine II] 1 ea MC QID #120 ea 06/11/14 04/21/19 Insulin Glargine Inj [Lantus Inj] 45 unit SQ BID #2 vial 08/31/15 04/21/19 Multivit-Min/FA/Lycopen/Lutein 1 tab PO QD #30 tab 12/13/15 04/21/19 [Centrum Silver Tablet] amlodipine 5 mg tablet 5 mg PO QDAY #30 tab 12/17/17 04/21/19 aspirin 81 mg chewable tablet 81 mg PO QDAY #30 tab 12/17/17 04/21/19 blood sugar diagnostic strips 1 strip MISCELLANEOUS QID #350 12/17/17 04/21/19 strip cetirizine 10 mg capsule 10 mg PO QDAY #30 cap 12/17/17 04/21/19 cholecalciferol (vitamin D3) 400 400 unit PO QD #30 cap 12/26/17 04/21/19 unit capsule fluticasone propionate 50 2 spray INASL BID #16 spray 12/26/17 04/21/19 mcg/actuation nasal spray,suspension tamsulosin 0.4 mg capsule 0.4 mg PO QD #30 cap 12/26/17 04/21/19 dapagliflozin 5 mg tablet 5 mg PO QAM #90 tab 11/25/18 04/21/19 empagliflozin 25 mg tablet 25 mg PO QAM #90 tab 12/19/18 04/21/19 lisinopril 40 mg tablet 20 mg PO QDAY #90 tab 12/19/18 04/21/19 rosuvastatin 40 mg tablet 40 mg PO QPM #90 tab 02/12/19 04/21/19 sitagliptin 100 mg tablet 100 mg PO QHS #90 tab 02/12/19 04/21/19 Hydrocodone/Acetaminophen 1 - 2 ea PO Q4-6H PRN #70 tab 04/21/19 [Hydrocodon-Acetaminoph 7.5-325] 8. Time, care, counseling and coordination of care for this discharge is less than 30 minutes. Exam - Vitals Vital Signs: Vital Signs Temperature 99.1 F Temperature Source Oral Pulse Rate [Pulse Oximeter] 93 Pulse Rate [Left index] 95 Pulse Rate 75 Respiratory Rate 20 Blood Pressure [Right Arm] 103/61 Blood Pressure 103/72 Pulse Ox [Left index] 91 Pulse Ox 93 Oxygen Flow Rate [Left index] 1 Oxygen Flow Rate 2 Oxygen Delivery Method [Left Room Air index] Oxygen Delivery Method Nasal Cannula Height 6 ft Weight 209 lb Patient Problems - Patient Problem List (1) Diabetes mellitus type 2, controlled Current Visit: Yes Status: Acute Code(s): E11.9 - Type 2 diabetes mellitus without complications Qualifiers: Diabetes mellitus bed bug exterminator insulin use: with bed bug exterminator use Diabetes mellitus complication status: without complication Qualified Code(s): E11.9 - Type 2 diabetes mellitus without complications; Z79.4 - termite control service representative (current) use of insulin Category: Medical (2) Vitamin D deficiency Current Visit: Yes Status: Chronic Onset Date: 11/14/15 Code(s): E55.9 - Vitamin D deficiency, unspecified Category: Medical (3) Obstructive sleep apnea syndrome Current Visit: Yes Status: Chronic Onset Date: 08/24/15 Code(s): G47.33 - Obstructive sleep apnea (adult) (pediatric) Category: Medical (4) Hemochromatosis Current Visit: Yes Status: Chronic Onset Date: 03/14/12 Code(s): E83.119 - Hemochromatosis, unspecified Qualifiers: Hemochromatosis type: hereditary Qualified Code(s): E83.110 - Hereditary hemochromatosis Category: Medical (5) Essential hypertension Current Visit: Yes Status: Chronic Onset Date: 03/27/12 Code(s): I10 - Essential (primary) hypertension Category: Medical (6) Status post right hip replacement Current Visit: Yes Status: Acute Code(s): Z96.641 - Presence of right artificial hip joint Category: Surgical
--- NOTE | 2019-04-22 11:27 | ORTHO.PROG ---
Last Taken Vital Signs: Vital Signs - Last Taken Temperature 99.1 F 04/22/19 06:41 Pulse Rate 95 04/22/19 11:00 Respiratory Rate 20 04/22/19 06:41 Blood Pressure 103/61 04/22/19 05:00 Pulse Ox 91 04/22/19 11:00 Subjective: Patient is POD 1 s/p Right RAJI. He reports having some pain currently, but it is at a tolerable level with the hydrocodone. His blood sugar was 60 this AM, but resolved and clinically he is feeling better after he ate breakfast. Denies any current paresthesias, calf pain, CP, SOB, F/C. Objective: Laboratory Results 04/21/19 04/22/19 04/22/19 15:30 04:05 04:05 WBC 8.22 RBC 4.99 Hgb 16.5 14.9 Hct 48.7 43.9 MCV 88.0 MCH 29.9 MCHC 33.9 RDW Std Deviation 43.6 RDW Coeff of Aaron 13.8 Plt Count 164 MPV 9.8 Sodium 139 Potassium 4.6 Chloride 108 Carbon Dioxide 22 L Anion Gap 9 BUN 18 Creatinine 0.7 Estimated GFR > 60 BUN/Creatinine Ratio 25.71 H Glucose 60 L Calculated Osmolality 287.0 Calcium 9.0 Radiographs of the right hip show s/p Right RAJI with well fixed and positioned components. On exam, the patient is A&O x 3 and not in any acute distress. He is currently sitting up in the chair. Prevena dressing intact holding suction. Negative calf tenderness. NV intact. Assessment: POD 1 s/p Right RAJI with postoperative pain as expected. Plan: * Pain meds: continue hydrocodone 7.5/325 mg upon discharge * DVT ppx: lovenox in hospital; discharge home on ASA 81mg 1 tablet daily and portable SCDs * Abd pillow: continue when sleeping at night * Wound care: leave Prevena dressing on until first PO visit * WBAT with walker * Start outpatient PT by Saturday * Discharge home once cleared by hospitalist; ok with ortho to be discharged home today * follow-up as scheduled with ortho in 1 week
--- NOTE | 2019-04-22 11:51 | PTI REPORT ---
Thank you for the referral of Jermaine Cuenca. He was seen on 04/22/19 for an inpatient evaluation status post posterior total hip arthroplasty. SUBJECTIVE: The patient is a 59-year-old male. The patient reports he lives in [place] with his . The patient reports his pain is very minimal at 4/10 on the verbal analog scale (0=no pain, 10=worst pain). The patient states he has eight stairs to get into his home with a handrail. Once inside everything is on one level. The patient is still working and was previously independent with everything. PAST MEDICAL HISTORY: Past medical history can be found in the patient's medical record. OBJECTIVE FINDINGS: General observations: Nursing okayed treatment prior to PT. The patient was on one liter of oxygen and had the Prevena dressing on his right hip. The patient had an adductor pillow. Bed mobility: The patient required stand by assist for supine to sit transfer to edge of bed. Transfers: The patient required contact guard assist for sit to stand transfer with standard walker. The patient was educated on using standard walker at this time and will be issued one this afternoon. The patient required contact guard assist x1 for sit to stand transfer from the toilet. The patient required contact guard assist x1 for stand to sit transfer to chair. Ambulation: The patient required contact guard assist x2 for gait with standard walker. The patient was instructed to ambulate 15 feet to the restroom. The patient was independent with dick care. Following toileting task the patient was instructed to ambulate 15 feet with contact guard assist x1 back to chair. ASSESSMENT: The patient is a 59-year-old male that presents status post posterior total hip arthroplasty. The patient was educated on posterior hip precautions. The patient would benefit from skilled therapy in order to improve functional mobility and return to prior level of function. Problem List: Decreased strength Decreased functional mobility Short-Term Goals: To be met by discharge from inpatient: Patient will be independent with all transfers with least restrictive assistive device. Patient will be able to ambulate 150 feet with walker. Patient will be able to ascend and descend a flight of stairs independently. Long-Term Goals: To be met following discharge from inpatient: Patient will be seen by outpatient physical therapy. TREATMENT PLAN: Patient will be seen B.I.D during the week and one time per day over the weekend as an inpatient for therapeutic exercise, functional activity, neuromuscular reeducation, gait training, and modalities as needed. INITIAL TREATMENT: Treatment today consisted of the initial evaluation followed by the patient transferring to the chair. Following treatment the patient was left in chair with chair alarm activated and call light within reach. NICHOLAS
[2019-04-22 12:54] VITALS: BP 114/73; RESP 16; TEMP 99; O2SAT 92
--- NOTE | 2019-04-22 15:39 | PT.PROG ---
Progress Note Progress Note: S. Patient stated that he is feeling good, he reports he feels ready to go home. O. Patient ambulated 150 feet around the nurses station then ascended and descended 6 stairs. Patient was left in his chair with alarm and call light. A. Patient tolerated therapy well this afternoon, he was able to perform ambulat ion and stair training with no issues. P. Patient has met all goals at this time.
--- NOTE | 2019-04-23 10:46 | OTI REPORT ---
Thank you for the referral of Jermaine Cuenca. He was seen on 04/22/19 for an occupational therapy inpatient evaluation status post right total hip arthroplasty. SUBJECTIVE: The patient is a 59-year-old male who is being seen secondary to a right posterior approach total hip arthroplasty. The patient lives at home with his . He says that he has stairs going into his home but once he is on the main level, everything is accessible. He already has a high rise toilet seat, but does not have a shower chair. He does have a bathtub that he will have to step into. PAST MEDICAL HISTORY: Past medical history can be found in the patient's medical record. OBJECTIVE FINDINGS: General observations: The patient did verbalize his hip precautions of no bending past 90, no internal rotation, and no crossing legs. He was sitting in chair upon the therapist's arrival. He was educated in hip precautions and he did need cues on how to follow them functionally during ADLs. Activities of daily living: The patient was able to use a powerhouse mechanic to doff socks and to don lower extremity clothing with min assist. The patient was able to use a sock aide as well. The patient was issued a powerhouse mechanic, sock aide, long handled shoe horn, and a bath sponge for increased independence at home. Transfers: The patient also needed cues on how to perform functional transfers while following precautions. He was able to come from sit to stand with contact guard assist. Ambulation: The patient was able to ambulate to the bathroom. The patient then stood at the sink x2 minutes with contact guard assist and then ambulated back to his chair. ASSESSMENT: The patient would benefit from skilled occupational therapy for at least one more session. Problem List: Decreased ability to complete ADLs Patient would benefit from more education on adaptive devices Decreased ability to complete functional transfers Short-Term Goals: To be met by discharge from inpatient: Patient will be able to use powerhouse mechanic and sock aide with modified independence. Patient will be able to complete functional transfers with stand by assist. Patient will be able to complete a shower transfer with stand by assist. Long-Term Goals: To be met following discharge from inpatient: Patient will be able to complete all functional ADLs and transfers with modified independence. TREATMENT PLAN: Patient will be seen B.I.D during the week and one time per day over the weekend as an inpatient to address the above goals and objectives. INITIAL TREATMENT: Treatment today consisted of the initial evaluation followed by practicing with adaptive devices. The patient was educated on his precautions. The patient needed several cues to not break the 90 degrees today during dressing tasks. NICHOLAS
== END 2019-04-22 15:30 | disposition home or self-care (01) | DRG 470 ==
LOC: OPS 09:46 → MED/SURG 15:38
PROVIDERS: ADMIT Orthopaedic Surgery; ATTEND Orthopaedic Surgery